=== PATIENT | female | born 1955 | race Caucasian/White ===

== ENCOUNTER 2024-04-09 08:10 | Emergency (ER) | payer MEDICARE ==
[~2024-04-09] VITALS: Ht 157.5 cm; Wt 54.5 kg
[2024-04-09 08:10] VITALS: BP 158/76; TEMP 97.9; O2SAT 100
[2024-04-09] MEDS ORDERED: ALEN70TA87 PO (08:17)
[2024-04-09] MEDS: IBUPROFEN 600MG TAB PO ONE (09:32)
== END 2024-04-09 10:13 | disposition home or self-care (01) ==
LOC: M ED 08:10
DX: S82.61XA Displaced fracture of lateral malleolus of right fibula, initial encounter for closed fracture (principal); X50.0XXA Overexertion from strenuous movement or load, initial encounter; Z79.899 Other long term (current) drug therapy; Y92.238 Other place in hospital as the place of occurrence of the external cause; Y93.89 Activity, other specified; Y99.9 Unspecified external cause status

== ENCOUNTER → 2024-04-29 | Outpatient (CLI) | payer MEDICARE ==
[~2024-04-29] MED LIST: ALEN70TA87 PO
== END ==
LOC: M SOG 07:25
PROVIDERS: ATTEND Physician Assistant
DX: S82.64XA Nondisplaced fracture of lateral malleolus of right fibula, initial encounter for closed fracture (principal); X58.XXXA Exposure to other specified factors, initial encounter; Y92.9 Unspecified place or not applicable; Y93.9 Activity, unspecified; Y99.9 Unspecified external cause status